=== PATIENT | female | born 1990 | race Caucasian/White ===

== ENCOUNTER → 2017-05-01 | Outpatient (CLI) | payer OTHER ==
[2017-05-01 13:22] LABS: ALKALINE PHOSPHATASE 87 U/L (45-117); ALT/SGPT 32 U/L (12-78); AST/SGOT 17 U/L (15-37); BLOOD UREA NITROGEN 8 mg/dl (7-18); BUN/CREATININE RATIO 16.9 (10-20); CALCIUM 8.8 mg/dl (8.5-10.1); CARBON DIOXIDE 24 mmol/L (21-32); CHLORIDE 106 mmol/L (98-107); CHOLESTEROL 186 mg/dl (0-200); CHOLESTEROL/HDL RATIO 3.3; CREATININE 0.49 mg/dl (0.60-1.20); GLUCOSE 93 mg/dl (70-99); HDL CHOLESTEROL 57 mg/dl; SODIUM 136 mmol/L (136-145)
[2017-05-01 13:33] LABS: LDL CHOLESTEROL CALCULATED 112 mg/dl; THYROID STIMULATING HORMONE 0.827 uIu/ml (0.300-4.500); TRIGLYCERIDES 84 mg/dl (0-150); VERY LOW DENSITY LIPOPROT CALC 17 mg/dl
[2017-05-01 13:43] LABS: BASO % 0.3 %; BASO ABS # 0.02 K/uL (0-0.2); COMPLETE YES; EOS % 1.3 %; HEMATOCRIT 42.6 % (37-47); IG% 0.3 %; LYMPH % 32.9 %; LYMPH ABS # 2.54 K/uL (1.2-3.4); MEAN CELL VOLUME 86.4 fL (80-100); MEAN CORPUSCULAR HEMOGLOBIN 28.4 pg (25-34); MEAN CORPUSCULAR HGB CONC 32.9 g/dl (32-36); MEAN PLATELET VOLUME 9.7 fL (7.4-10.4); MONO % 8.9 %; NEUT % 56.3 %; PLATELET COUNT 353 K/uL (130-400); RED BLOOD COUNT 4.93 M/uL (4.2-5.4); WHITE BLOOD COUNT 7.72 K/uL (4.8-10.8)
== END | disposition home or self-care (01) ==
LOC: C.LABPVFM 08:30
PROVIDERS: ATTEND Nurse Practitioner Family
DX: R19.7 Diarrhea, unspecified (principal); R63.5 Abnormal weight gain; F41.9 Anxiety disorder, unspecified; I49.9 Cardiac arrhythmia, unspecified